=== PATIENT | female | born 1985 ===

== ENCOUNTER 2017-11-19 22:11 | Emergency (ER) | payer MEDICAID ==
[2017-11-19 22:27] VITALS: BP 128/76; PULSE 85; RESP 19; TEMP 98.2; O2SAT 100
[2017-11-19 22:28] VITALS: BMI 29.9
[2017-11-19] MEDS ORDERED: Sodium Chloride 0.9% 1,000 ML IV STA (22:48)
[2017-11-19] MEDS ORDERED: Ciprofloxacin 400mg/200ml D5W 400 MG/200 ML BAG IVPB STA (22:52)
--- NOTE | 2017-11-19 22:52 | ED PDOC ---
HPI: Abdomen Chief Complaint (Nursing): GI Problem Chief Complaint (Provider): Nasuea/vomiting and Diarrhea History Per: Patient Additional Complaint(s): 32 yo female, denies any PMH, presents to ED for evaluation of continued nausea , vomiting, abdominal cramping and diarrhea. Pt seen and evaluated in [facility] [place] ED yesterday after presenting with the same symptoms. Pt returned home from [place] same day. Pt notes symptoms started Saturday while in [place]. Pt was given Pepcid and Toradol while in ED, Had CT done that showed: IMPRESSION: Distended loops of small bowel in the mid to lower abdomen with some mild wall enhancement. Some free fluid adjacent to the bowel loops in the right lower abdomen. This would be concerning for possible enteritis. Clinical correlation. Fluid-filled loops of large bowel which may represent diarrheal illness. Additional findings as above. These findings were preliminarily reported at 7:54 p.m. on 11/18/[address] Ceci Mariee from [employer]. Sent home on Bent[place] with no relief. Past Medical History Reviewed: Nursing Documentation, Vital Signs Vital Signs: Last Vital Signs Temp 98.2 F 11/19/17 22:26 Pulse 85 11/19/17 22:26 Resp 19 11/19/17 22:26 BP 128/76 11/19/17 22:26 Pulse Ox 100 11/19/17 23:14 - Medical History PMH: No Chronic Diseases - Surgical History Surgical History: Cholecystectomy, Other surgeries: Tummy tuck - Family History Family History: States: Unknown Family Hx - Living Arrangements Living Arrangements: With Family - Social History Current smoker - smoking cessation education provided: No Alcohol: Social Drugs: Denies - Immunization History Hx Tetanus Toxoid Vaccination: No Hx Influenza Vaccination: No Hx Pneumococcal Vaccination: No - Home Medications Home Medications: Ambulatory Orders Medication Instructions Recorded Dicyclomine [Dicyclomine HCl] 10 mg PO TID PRN #15 cap 11/18/17 Ciprofloxacin [Cipro] 500 mg PO BID #14 tab 11/19/17 Ciprofloxacin [Cipro] 500 mg PO BID #6 tab 11/19/17 Ondansetron ODT [Zofran ODT] 4 mg PO Q6 PRN #10 odt 11/19/17 - Allergies Allergies/Adverse Reactions: Allergies Allergy/AdvReac Type Severity Reaction Status Date / Time No Known Allergies Allergy Verified 11/18/17 16:31 Review of Systems ROS Statement: Except As Marked, All Systems Reviewed And Found Negative Constitutional: Negative for: Fever Gastrointestinal: Positive for: Nausea, Vomiting, Abdominal Pain, Diarrhea Physical Exam - Reviewed Nursing Documentation Reviewed: Yes Vital Signs Reviewed: Yes - Physical Exam Appears: Positive for: Well, Non-toxic, No Acute Distress Head Exam: Positive for: ATRAUMATIC, NORMAL INSPECTION, NORMOCEPHALIC Skin: Positive for: Normal Color, Warm, DRY Eye Exam: Positive for: EOMI, Normal appearance, PERRL ENT: Positive for: Normal ENT Inspection Neck: Positive for: Normal, Painless ROM Cardiovascular/Chest: Positive for: Regular Rate, Rhythm Respiratory: Positive for: CNT, Normal Breath Sounds Gastrointestinal/Abdominal: Positive for: Normal Exam, Soft Back: Positive for: Normal Inspection Extremity: Positive for: Normal ROM Neurologic/Psych: Positive for: Alert, Oriented - Laboratory Results Result Diagrams: 11/19/17 23:05 11/19/17 23:05 - ECG O2 Sat by Pulse Oximetry: 100 Medical Decision Making Medical Decision Making: IV access established and diagnostics ordered. IVF started, as well as Pepcid, Zofran and Cipro On amado eval, Pt reports mild abdominal pain remaining. Toradol administered. On second re-eval, Pt reports feeling improved. abdomen soft non tender and non distended. Pt tolerated PO Given RX for Cipro and Zofran. advised BRAT diet, advance as tolerated Disposition - Clinical Impression Clinical Impression: Travelers' diarrhea - Patient ED Disposition Is Patient to be Admitted: Transfer of Care - Disposition Disposition: Transfer of Care Disposition Time: 00:00 Condition: STABLE Prescriptions: Ciprofloxacin [Cipro] 500 mg PO BID #6 tab Ciprofloxacin [Cipro] 500 mg PO BID #14 tab Ondansetron ODT [Zofran ODT] 4 mg PO Q6 PRN #10 odt PRN Reason: Nausea/Vomiting Instructions: Traveler's Diarrhea Forms: [employer] (Polish)
[2017-11-19] MEDS ORDERED: Ciprofloxacin 400mg/200ml D5W 400 MG/200 ML BAG IVPB ONE (22:58)
[2017-11-19 23:27] LABS: BASO % 0.1 % (0.0-2.0); HEMOGLOBIN 11.9 g/dL (12.0-16.0); LYMPH # 1.4 K/uL (1.0-4.3); LYMPH % 27.7 % (20.0-40.0); MEAN CELL VOLUME 81.7 fl (81.0-99.0); MEAN CORPUSCULAR HEMOGLOBIN 26.8 pg (27.0-31.0); MEAN CORPUSCULAR HGB CONC 32.8 g/dL (33.0-37.0); MEAN PLATELET VOLUME 8.9 fl (7.2-11.7); MONO # 0.8 K/uL (0.0-0.8); MONO % 14.8 % (0.0-10.0); NEUT % 57.4 % (50.0-75.0); RBC 4.43 Mil/uL (3.80-5.20); RED CELL DISTRIBUTION WIDTH 17.1 % (11.5-14.5); WHITE BLOOD COUNT 5.2 K/uL (4.8-10.8)
[2017-11-19 23:33] LABS: ALB/GLOB RATIO 1.2 (1.0-2.1); ALBUMIN 3.7 g/dL (3.5-5.0); ALT/SGPT 89 U/L (9-52); AMYLASE 67 U/L (30-110); AST/SGOT 80 U/L (14-36); BLOOD UREA NITROGEN 13 mg/dl (7-17); CALCIUM 8.9 mg/dL (8.4-10.2); GFR AFRICAN-AMERICAN > 60; GFR NON-AFRICAN AMERICAN > 60; LIPASE 72 U/L (23-300)
[2017-11-20 00:06] LABS: SQUAMOUS EPITHIAL 4 /hpf (0-5); URINE BILIRUBIN NEGATIVE (NEGATIVE); URINE BLOOD SMALL (NEGATIVE); URINE CLARITY SLIGHTY-CLOUDY (Clear); URINE COLOR AMBER (YELLOW); URINE GLUCOSE (UA) NEG (Normal); URINE LEUKOCYTE ESTERASE TRACE Leu/uL (Negative); URINE PROTEIN 30 mg/dL (NEGATIVE)
== END 2017-11-20 02:10 | disposition home or self-care (01) ==
LOC: H.ER 22:11
DX: R19.7 Diarrhea, unspecified (principal)
CPT/HCPCS: 80053; 81003; 81025; 82150; 83690; 85025; 96365; 96375; 99284; J0744; J1885; J2405; J7030

== ENCOUNTER 2018-05-01 23:29 | Emergency (ER) | payer MEDICAID ==
[2018-05-01 23:29] VITALS: BMI 29.9
[2018-05-02] MEDS ORDERED: Sodium Chloride 0.9% 1,000 ML IV STA (00:29)
--- NOTE | 2018-05-02 00:32 | ED PDOC ---
HPI: Abdomen Time Seen by Provider: 05/01/18 23:59 Chief Complaint (Nursing): Abdominal Pain Chief Complaint (Provider): abdominal pain History Per: Patient History/Exam Limitations: no limitations Onset/Duration Of Symptoms: Days (1) Current Symptoms Are (Timing): Still Present Location Of Pain/Discomfort: Epigastric Associated Symptoms: Nausea, Vomiting Additional Complaint(s): 33 y/o female presents for evaluation of epigastric abdominal pain x 1 day. Associated nausea, vomiting x 2. Patient also notes right flank pain x 2 days. Denies fever, cough, chest pain, shortness of breath, palpitations, changes in bowel movements, urinary symptoms. Past Medical History Reviewed: Historical Data, Nursing Documentation, Vital Signs Vital Signs: Last Vital Signs Temp 98.3 F 05/01/18 23:41 Pulse 88 05/01/18 23:41 Resp 16 05/01/18 23:41 BP 140/88 05/01/18 23:41 Pulse Ox 99 05/01/18 23:41 - Medical History PMH: No Chronic Diseases - Surgical History Surgical History: Cholecystectomy, - Family History Family History: States: Unknown Family Hx - Living Arrangements Living Arrangements: With Family - Immunization History Hx Tetanus Toxoid Vaccination: No Hx Influenza Vaccination: No Hx Pneumococcal Vaccination: No - Home Medications Home Medications: Ambulatory Orders Medication Instructions Recorded Dicyclomine [Dicyclomine HCl] 10 mg PO TID PRN #15 cap 11/18/17 Ciprofloxacin [Cipro] 500 mg PO BID #14 tab 11/19/17 Ciprofloxacin [Cipro] 500 mg PO BID #6 tab 11/19/17 Ondansetron ODT [Zofran ODT] 4 mg PO Q6 PRN #10 odt 11/19/17 Famotidine [Pepcid] 20 mg PO BID #30 tab 05/02/18 Ondansetron ODT [Zofran ODT] 4 mg PO Q8 PRN #10 odt 05/02/18 - Allergies Allergies/Adverse Reactions: Allergies Allergy/AdvReac Type Severity Reaction Status Date / Time No Known Allergies Allergy Verified 05/01/18 23:41 Review of Systems ROS Statement: Except As Marked, All Systems Reviewed And Found Negative Gastrointestinal: Positive for: Nausea, Abdominal Pain Physical Exam - Reviewed Nursing Documentation Reviewed: Yes Vital Signs Reviewed: Yes - Physical Exam Appears: Positive for: Well, Non-toxic, No Acute Distress Head Exam: Positive for: ATRAUMATIC, NORMAL INSPECTION, NORMOCEPHALIC Skin: Positive for: Normal Color Eye Exam: Positive for: Normal appearance ENT: Positive for: Normal ENT Inspection Cardiovascular/Chest: Positive for: Regular Rate, Rhythm Respiratory: Positive for: Normal Breath Sounds Gastrointestinal/Abdominal: Positive for: Bowel Sounds, Soft, Tenderness (epigastric) Back: Positive for: Normal Inspection Extremity: Positive for: Normal ROM Neurologic/Psych: Positive for: Alert, Oriented (x3) - Laboratory Results Result Diagrams: 05/02/18 01:00 05/02/18 01:00 - ECG O2 Sat by Pulse Oximetry: 99 - Progress ED Course And Treament: -cbc -cmp -lipase -urinalysis -IV NS bolus -IV pepcid -IV zofran On re-eval, patient states she is feeling much better. Tolerating PO Patient educated on findings, discharged with rx Zofran, Pepcid Advised diet modification Follow up PMD/GI Return precautions given Disposition - Clinical Impression Clinical Impression: Abdominal pain - Patient ED Disposition Is Patient to be Admitted: No Counseled Patient/Family Regarding: Studies Performed, Diagnosis, Need For Followup, Rx Given - Disposition Referrals: Coel Seay MD, PhD [Staff Provider] - Disposition: Routine/Home Disposition Time: 04:16 Condition: IMPROVED Prescriptions: Famotidine [Pepcid] 20 mg PO BID #30 tab Ondansetron ODT [Zofran ODT] 4 mg PO Q8 PRN #10 odt PRN Reason: Nausea/Vomiting Instructions: Acute Abdomen (Belly Pain), Adult (DC) Forms: [employer] (Occitan)
[2018-05-02 01:08] LABS: SQUAMOUS EPITHIAL 2 /hpf (0-5); URINE BACTERIA RARE (<OCC); URINE BILIRUBIN NEGATIVE (NEGATIVE); URINE BLOOD NEGATIVE (NEGATIVE); URINE CLARITY SLIGHTY-CLOUDY (Clear); URINE COLOR YELLOW (YELLOW); URINE GLUCOSE (UA) NEG (NEGATIVE); URINE LEUKOCYTE ESTERASE NEG Leu/uL (Negative); URINE PROTEIN 30 mg/dL (NEGATIVE); URINE UROBILINOGEN 0.2-1.0 mg/dL (0.2-1.0)
[2018-05-02 02:16] LABS: BASO % 0.4 % (0.0-2.0); HEMOGLOBIN 13.4 g/dL (12.0-16.0); LYMPH # 1.5 K/uL (1.0-4.3); LYMPH % 18.4 % (20.0-40.0); MEAN CELL VOLUME 87.3 fl (81.0-99.0); MEAN CORPUSCULAR HEMOGLOBIN 28.5 pg (27.0-31.0); MEAN CORPUSCULAR HGB CONC 32.6 g/dL (33.0-37.0); MEAN PLATELET VOLUME 9.2 fl (7.2-11.7); MONO # 0.5 K/uL (0.0-0.8); MONO % 6.8 % (0.0-10.0); NEUT % 74.4 % (50.0-75.0); NRBC % 0.1 % (0.0-0.0); RBC 4.71 Mil/uL (3.80-5.20); RED CELL DISTRIBUTION WIDTH 16.2 % (11.5-14.5)
[2018-05-02 03:01] LABS: ALB/GLOB RATIO 1.2 (1.0-2.1); ALBUMIN 4.2 g/dL (3.5-5.0); ALT/SGPT 31 U/L (9-52); AST/SGOT 27 U/L (14-36); BLOOD UREA NITROGEN 15 mg/dl (7-17); CALCIUM 8.8 mg/dL (8.4-10.2); GFR NON-AFRICAN AMERICAN > 60; LIPASE 119 U/L (23-300)
[2018-05-02 04:37] VITALS: BP 110/64; PULSE 79; RESP 18; TEMP 97.9; O2SAT 100
== END 2018-05-02 04:38 | disposition home or self-care (01) ==
LOC: H.ER 23:29
DX: R10.13 Epigastric pain (principal)
CPT/HCPCS: 80053; 81003; 81025; 83690; 85025; 87086; 96361; 96374; 96375; 99284; J2405; J7030